=== PATIENT | female | born 1995 | race Two or more races ===

== ENCOUNTER 2020-05-01 22:03 | Emergency (ER) | payer BC, OTHER ==
[~2020-05-01] VITALS: Ht 154.9 cm; Wt 68.0 kg
[2020-05-02 00:09] VITALS: BP 141/94
== END 2020-05-02 01:57 | disposition left against medical advice (07) ==
LOC: ER 22:05
DX: R10.9 Unspecified abdominal pain (principal); M54.5 Low back pain; R20.0 Anesthesia of skin; Z53.21 Procedure and treatment not carried out due to patient leaving prior to being seen by health care provider

== ENCOUNTER 2022-04-27 17:08 | Emergency (ER) | payer SELFPAY ==
[~2022-04-27] VITALS: Ht 154.9 cm; Wt 74.3 kg
[2022-04-27 17:29] VITALS: BP 136/76
== END 2022-04-27 18:34 | disposition left against medical advice (07) ==
LOC: ER 17:08
DX: S60.411A Abrasion of left index finger, initial encounter (principal); Z53.21 Procedure and treatment not carried out due to patient leaving prior to being seen by health care provider; W55.03XA Scratched by cat, initial encounter; Y93.89 Activity, other specified; Y92.89 Other specified places as the place of occurrence of the external cause; Y99.8 Other external cause status